=== PATIENT | male | born 1950 | race African-American/Black ===

== ENCOUNTER 2016-12-21 04:33 | Observation (INO) | payer OTHER ==
[~2016-12-21] VITALS: Ht 177.8 cm; Wt 63.4 kg
[~2016-12-21 04:33] MED LIST: NORVASC10 M1 PO
[2016-12-21 05:13] LABS: HEMATOCRIT 42.4 % (38.0-50.0); MCH 33.5 PG (29.0-34.0); MCHC 34.4 G/DL (30.0-36.0); MCV 97.2 FL (86-99); MEAN PLAT.VOLUME 9.2 uM^3 (9.0-12.4); PLATELET COUNT 136 K/uL (156-360); RBC DIS.WIDTH-CV 12.9 % (11.8-14.6); RBC DIS.WIDTH-SD 46.5 % (39-53); RED BLOOD COUNT 4.36 M/uL (4.00-5.50); WHITE BLOOD COUNT 4.4 K/uL (4.1-10.2)
[2016-12-21 05:22] LABS: CHLORIDE 101 mEq/L (99-109)
[2016-12-21 05:23] LABS: SODIUM 139 mEq/L (136-147)
[2016-12-21 05:24] LABS: GLUCOSE 90 mg/dL (70-99)
[2016-12-21 05:26] LABS: ANION GAP 18 MEQ/L (2-14)
[2016-12-21 05:28] LABS: GFR ESTIMATE (CALCULATED) > 59 mL/min/
[2016-12-21 05:29] LABS: UREA NITROGEN (BUN) 17 mg/dL (9-23)
[2016-12-21] MEDS ORDERED: LISINOPRIL20 MG PO (06:50)
[2016-12-21] MEDS ORDERED: LISINOPRIL10 MG PO (06:50)
[2016-12-21] MEDS ORDERED: HYDROCHLOROTH12.5 M3 PO (06:52)
[2016-12-21] MEDS ORDERED: NORVASC10 MG PO (08:43)
[2016-12-21] MEDS ORDERED: CIALIS10 MG PO (08:44)
[2016-12-21] MEDS ORDERED: TIMOLOL MALEATE5 M1 BOTH EYES (08:44)
[2016-12-21] MEDS ORDERED: VITAMIN E400 UNIT PO (08:45)
[2016-12-21 12:00] VITALS: BP 143/68
[2016-12-21 12:57] VITALS: BP 166/79
[2016-12-21 16:15] VITALS: BP 152/91
[2016-12-21 19:30] VITALS: BP 136/72
[2016-12-22 00:35] VITALS: BP 128/69
[2016-12-22 03:30] VITALS: BP 124/76
[2016-12-22 07:34] VITALS: BP 161/97
[2016-12-22] MEDS ORDERED: BENADRYL50 MG PO (10:38)
[2016-12-22] MEDS ORDERED: PREDNISONE10 MG PO (10:40)
== END 2016-12-22 13:25 | disposition home or self-care (01) ==
LOC: EME 04:33 → 5WEST 07:27 → EDOF 07:27 → 5WEST 12:48
PROVIDERS: Emergency Medicine
DX: T78.3XXA Angioneurotic edema, initial encounter (principal); T46.4X5A Adverse effect of angiotensin-converting-enzyme inhibitors, initial encounter; I10 Essential (primary) hypertension
CPT/HCPCS: 80048; 85027; 99281; 99285; G0378; J1200; J1650; J2930; J7042; S0028